=== PATIENT | female | born 2000 | race American Indian/Alaskan Native ===

== ENCOUNTER 2021-03-10 18:55 | Emergency (ER) | payer SELFPAY ==
--- NOTE | 2021-03-10 20:22 | XRay Report ---
XR chest routine 2V INDICATION / CLINICAL INFORMATION: CP. COMPARISON: None available. FINDINGS: SUPPORT DEVICES: None. HEART /PULMONARY VASCULATURE: No significant abnormality. LUNGS / PLEURA: No significant pulmonary or pleural abnormality. No pneumothorax. ADDITIONAL FINDINGS: No significant additional findings. IMPRESSION: 1. No acute findings. Signer Name: Cheikh Soares MD Signed: 03/10/2021 8:18 PM Workstation Name: [id number]
--- NOTE | 2021-03-10 20:53 | Emergency Department Report ---
- General Chief Complaint: Sore Throat Stated Complaint: FEVER Source: patient Mode of arrival: Ambulatory Limitations: No Limitations - History of Present Illness Initial Comments: Patient is a nulliparous 20-year-old -[place] female with no past medical history who presented to the ED with complaint of acute onset persistent diffuse body aches and pains, nasal and sinus congestion, persistent severe sore throat with dysphagia, and with scratchy throat, persistent dry cough, nausea and lack of appetite for the last 2 days. Patient also complains of subjective fever for which she has been taking Tylenol. Patient stated that she tested negative for COVID-19 viral infection 24 hours ago. Patient states that her symptoms got worse in the last 12 hours. Patient denies dizziness, syncope, ch est pain, shortness of breath, vomiting, diarrhea, dysuria, urinary frequency and urgency, vaginal bleeding, vaginal discharge, abdominal pain, back pain or palpitations. MD Complaint: fever, cough, sore throat, rhinorrhea, nasal congestion, sinus pain, other (Diffuse body aches and pains) -: Sudden, days(s) (2) Severity: moderate Severity scale (0 -10): 6 Quality: sharp, aching Consistency: constant Improves With: NSAID, OTC cold medicine Worsens With: nothing Context: sick contacts Associated Symptoms: fever, chills, myalgias, headache, rhinorrhea, nasal congestion, sore throat, cough. denies: diaphoresis, stiff neck, chest pain, shortness of breath, abdominal pain, nausea, vomiting, diarrhea, dysuria, rash, right sweats, weight loss, epistaxis, hoarseness, ear pain, other Treatments Prior to Arrival: Acetaminophen, "cold medicine" - Related Data Previous Rx's Medication Instructions Recorded Last Taken Type Azithromycin [Zithromax Z-NAYELY] 250 mg PO DAILY #6 tablet 03/10/21 Unknown Rx Benzonatate [Tessalon Perles] 100 mg PO Q8HR #30 capsule 03/10/21 Unknown Rx Cetirizine HCl [Zyrtec 10mg tab] 10 mg PO DAILY #30 tablet 03/10/21 Unknown Rx Ibuprofen [Motrin] 600 mg PO Q8H PRN #30 tablet 03/10/21 Unknown Rx predniSONE [Deltasone] 40 mg PO QDAY #10 tab 03/10/21 Unknown Rx Allergies Allergy/AdvReac Type Severity Reaction Status Date / Time No Known Allergies Allergy Unverified 03/10/21 19:58 ED Review of Systems ROS: Stated complaint: FEVER Other details as noted in HPI Constitutional: chills, fever, malaise, weakness Eyes: denies: eye pain, eye discharge, vision change ENT: throat pain, congestion. denies: ear pain Respiratory: cough. denies: shortness of breath, wheezing Cardiovascular: denies: chest pain, palpitations Endocrine: no symptoms reported Gastrointestinal: nausea. denies: abdominal pain, vomiting, diarrhea, hematemesis Genitourinary: denies: urgency, dysuria, discharge Musculoskeletal: arthralgia, myalgia. denies: back pain, joint swelling Skin: denies: rash, lesions Neurological: headache. denies: weakness, paresthesias Psychiatric: denies: anxiety, depression Hematological/Lymphatic: denies: easy bleeding, easy bruising ED Past Medical Hx - Past Medical History Previous Medical History?: No - Surgical History Past Surgical History?: No - Medications Home Medications: Home Medications Medication Instructions Recorded Confirmed Last Taken Type Azithromycin [Zithromax Z-NAYELY] 250 mg PO DAILY #6 tablet 03/10/21 Unknown Rx Benzonatate [Tessalon Perles] 100 mg PO Q8HR #30 capsule 03/10/21 Unknown Rx Cetirizine HCl [Zyrtec 10mg tab] 10 mg PO DAILY #30 tablet 03/10/21 Unknown Rx Ibuprofen [Motrin] 600 mg PO Q8H PRN #30 tablet 03/10/21 Unknown Rx predniSONE [Deltasone] 40 mg PO QDAY #10 tab 03/10/21 Unknown Rx ED Physical Exam - General Limitations: No Limitations General appearance: alert, in no apparent distress - Head Head exam: Present: atraumatic, normocephalic, normal inspection - Eye Eye exam: Present: normal appearance, PERRL, EOMI Pupils: Present: normal accommodation - ENT ENT exam: Present: mucous membranes moist, TM's normal bilaterally, normal external ear exam, other (Grossly congested nasal passages; mild erythematous oropharynx ) - Neck Neck exam: Present: normal inspection, full ROM. Absent: tenderness, lymphadenopathy - Respiratory Respiratory exam: Present: normal lung sounds bilaterally. Absent: respiratory distress, wheezes, rales, rhonchi, stridor, chest wall tenderness, accessory muscle use, decreased breath sounds, prolonged expiratory - Cardiovascular Cardiovascular Exam: Present: normal rhythm, tachycardia, normal heart sounds. Absent: systolic murmur, diastolic murmur, rubs, gallop - GI/Abdominal GI/Abdominal exam: Present: soft, normal bowel sounds. Absent: tenderness, guarding, rebound, hyperactive bowel sounds, hypoactive bowel sounds, organomegaly, mass - Extremities Exam Extremities exam: Present: normal inspection, full ROM, normal capillary refill - Back Exam Back exam: Present: normal inspection, full ROM. Absent: tenderness, CVA tenderness (R), CVA tenderness (L), muscle spasm, paraspinal tenderness, vertebral tenderness - Neurological Exam Neurological exam: Present: alert, oriented X3, CN II-XII intact, normal gait, reflexes normal - Psychiatric Psychiatric exam: Present: normal affect, normal mood - Skin Skin exam: Present: warm, dry, intact, normal color. Absent: rash ED Course Vital Signs 03/10/21 19:58 Temperature 98.0 F Pulse Rate 107 H Respiratory 18 Rate Blood Pressure 158/102 O2 Sat by Pulse 100 Oximetry ED Medical Decision Making - Radiology Data Radiology results: report reviewed, image reviewed [facility] [address] [place] [address] XRay Report Signed Patient: AMERICA HERNANDEZ MR#: [id number] 86 : 2000 Acct:[id number] Age/Sex: 20 / F ADM Date: 03/10/21 Loc: ED Attending Dr: Ordering Physician: MARKEL HERZOG DO Date of Service: 03/10/21 Procedure(s): XR chest routine 2V Accession Number(s): [id number] cc: MARKEL HERZOG DO Fluoro Time In Minutes: XR chest routine 2V INDICATION / CLINICAL INFORMATION: CP. COMPARISON: None available. FINDINGS: SUPPORT DEVICES: None. HEART /PULMONARY VASCULATURE: No significant abnormality. LUNGS / PLEURA: No significant pulmonary or pleural abnormality. No pneumothorax. ADDITIONAL FINDINGS: No significant additional findings. IMPRESSION: 1. No acute findings. Signer Name: Ivanna Soares MD Signed: 03/10/2021 8:18 PM Workstation Name: [id number] Transcribed By: JS Dictated By: IVANNA SOARES MD Electronically Authenticated By: IVANNA SOARSE MD Signed Date/Time: 03/10/212017 DD/ 17 TD/TT: - Medical Decision Making This is a nulliparous 20-year-old -[place] female with no past medical history who presented to the ED with complaint of acute onset persistent diffuse body aches and pains, nasal and sinus congestion, persistent severe sore throat with dysphagia, and with scratchy throat, persistent dry cough, nausea and lack of appetite for the last 2 days. Patient also complains of subjective fever for which she has been taking Tylenol. Patient stated that she tested negative for COVID-19 viral infection 24 hours ago. Patient states that her symptoms got worse in the last 12 hours. In the ED, patient is alert and oriented x3 and is not in any distress but tachycardic and afebrile in triage. Chest x-ray showed no acute cardiopulmonary abnormalities or pneumonitis. Rapid influenza and rapid strep test were negative. Patient was therefore discharged home on medications and advised to follow-up with her primary care physician in 7 to 10 days for reevaluation. Patient is advised return to the ED immediately if symptoms get worse. - Differential Diagnosis Strep pharyngitis; influenza; URI; sinusitis; pneumonia; bronchitis; COVID Critical care attestation.: If time is entered above; I have spent that time in minutes in the direct care of this critically ill patient, excluding procedure time. ED Disposition Clinical Impression: Acute upper respiratory infection Acute pharyngitis Qualifiers: Pharyngitis/tonsillitis etiology: other specified organisms Qualified Code(s): J02.8 - Acute pharyngitis due to other specified organisms Acute bronchitis Qualifiers: Bronchitis organism: other organism Qualified Code(s): J20.8 - Acute bronchitis due to other specified organisms Disposition: 01 HOME / SELF CARE / HOMELESS Is pt being admited?: No Does the pt Need Aspirin: No Condition: Stable Instructions: Acute Bronchitis, Adult, [id number], Upper Respiratory Infection, Adult, [id number], Pharyngitis, [id number], Acute Bronchitis (ED) Additional Instructions: All lab test results were reviewed and are all nonactionable. Chest x-ray showed no acute cardiopulmonary abnormalities or pneumonitis. Therefore take medication with food, drink plenty fluids and follow-up with your primary care physician in 7 to 10 days for reevaluation. Return to the ED immediately if symptoms get worse. Prescriptions: predniSONE [Deltasone] 40 mg PO QDAY #10 tab Ibuprofen [Motrin] 600 mg PO Q8H PRN #30 tablet PRN Reason: Pain Benzonatate [Tessalon Perles] 100 mg PO Q8HR #30 capsule Azithromycin [Zithromax Z-NAYELY] 250 mg PO DAILY #6 tablet Cetirizine HCl [Zyrtec 10mg tab] 10 mg PO DAILY #30 tablet Referrals: [facility] [Provider Group] - 7-10 days Time of Disposition: 23:50 Print Language: [place]
[2021-03-11 00:38] VITALS: BP 132/85
== END 2021-03-11 00:36 | disposition home or self-care (01) ==
LOC: ED 18:55
DX: J20.9 Acute bronchitis, unspecified (principal); J06.9 Acute upper respiratory infection, unspecified
CPT/HCPCS: 71045; 71046; 87116; 87400; 87430; 99283